=== PATIENT | female | born 1995 | race African-American/Black ===

== ENCOUNTER 2017-02-01 13:22 | Emergency (ER) | payer OTHER ==
[~2017-02-01] VITALS: Ht 172.7 cm; Wt 80.3 kg
[~2017-02-01 13:22] MED LIST: APAP500 PO; DERMOPLAST SPRA56 ML; HYDROCORTISONE30 G9; IBUPROFEN 400400 M1 PO; IRON325 PO; LANOLIN56 GM; PRENATAL PO; TUCKS MEDICATE1 EAC1
[2017-02-01 14:43] LABS: URINE BLOOD NEGATIVE (Negative); URINE COLOR YELLOW; URINE GLUCOSE-RANDOM* NEGATIVE (Negative); URINE KETONES 2+ (Negative); URINE NITRITE NEGATIVE (Negative); URINE PROTEIN (DIPSTICK) TRACE (Negative); URINE SPECIFIC GRAVITY 1.025 (1.003-1.035); URINE UROBILINOGEN 0.2 E.U./dl (0.2-1.0)
[2017-02-01 14:44] LABS: ABSOLUTE NEUTROPHILS 6.5 thou/uL (1.4-8.2); BASOPHILS 0.4 % (0.0-2.0); HEMATOCRIT 37.6 % (37.0-47.0); HEMOGLOBIN 12.4 gm/dL (12.0-15.0); LYMPHOCYTES 12.7 % (24.0-44.0); MCH 28.9 pg (26.0-34.0); MCV 87.7 fL (80.0-100.0); MONOCYTES 6.6 % (1.0-8.0); PLATELET COUNT 166 thou/uL (150-400); POLYS 80.3 % (36.0-66.0); RBC 4.29 mil/uL (4.20-5.00); RDW 13.5 % (10.5-14.5); WBC 8.1 thou/uL (4.0-11.0)
[2017-02-01 14:46] LABS: MANUAL DIFF NO; URINE BILIRUBIN NEGATIVE (Negative)
[2017-02-01 15:02] LABS: CALCIUM 9.5 mg/dL (8.5-10.1); CREATININE 0.8 mg/dL (0.6-1.0); POTASSIUM 3.7 mmol/L (3.5-5.1)
[2017-02-01 15:07] LABS: ALBUMIN 3.9 g/dL (3.4-5.0); TOTAL BILIRUBIN 0.7 mg/dL (<0.1-1.0)
[2017-02-01] MEDS ORDERED: PROMS25 WY RECTAL (15:10)
[2017-02-01] MEDS ORDERED: PHENERGAN 25 MG25 M1 PO (15:10)
[2017-02-01] MEDS ORDERED: CITRATE OF MAG296 ML PO (15:30)
[2017-02-01] MEDS ORDERED: SENOKOT-S1 TA1 PO (15:30)
[2017-02-01 16:08] VITALS: BP 127/76
== END 2017-02-01 16:09 | disposition home or self-care (01) ==
LOC: ER 13:22
PROVIDERS: Emergency Medicine
DX: R10.10 Upper abdominal pain, unspecified (principal); R11.2 Nausea with vomiting, unspecified